=== PATIENT | female | born 1955 | race Two or more races ===

== ENCOUNTER 2017-02-02 10:32 | Emergency (ER) | payer OTHER | END 2017-02-02 10:35 | disposition left against medical advice (07) | LOC: CED 10:32 | DX: Z53.21 Procedure and treatment not carried out due to patient leaving prior to being seen by health care provider (principal) ==

== ENCOUNTER → 2018-01-06 | Outpatient (CLI) | payer OTHER | LOC: BRMIMAGING 09:16 | PROVIDERS: ATTEND Internal Medicine | DX: M19.041 Primary osteoarthritis, right hand (principal); M19.042 Primary osteoarthritis, left hand | CPT/HCPCS: 73130-PO ==

== ENCOUNTER 2018-08-12 09:36 | Emergency (ER) | payer OTHER ==
[2018-08-12] MEDS ORDERED: NS 1,000 ML IV ONE (10:17)
[2018-08-12] MEDS ORDERED: METOCLOPRAMIDE 10 MG/2 ML VIAL IVP ONE (10:17)
[2018-08-12] MEDS ORDERED: KETOROLAC 15 MG/1 ML SDV IVP ONE (10:18)
[2018-08-12] MEDS ORDERED: HYOSCYAMINE SULFATE 0.125 MG TAB PO ONE (10:51)
--- NOTE | 2018-08-12 11:08 | EDPHY ---
H & P Stated Complaint: Generalized abdominal pain x 1 day Time Seen by Provider: 08/12/18 10:03 HPI/ROS: This patient describes a new history of upper belly discomfort that started at 11:00 p.m. Last night while at rest. She describes this as intermittent cramping"like intestines twisted". She describes this as severe in intensity at times with no clear exacerbating factors. The pain does radiate up into her chest at times and is described as a tightness in her chest when it does occur- briefly. She does recall having this pain before. She has no other associated symptoms except for nausea and anorexia. She did not eat breakfast this morning as she usually does. Her brought her in by private vehicle for evaluation of the symptoms. ROS: Constitutional: She describes fatigue over the past 24 hr. No high fevers or chills. HEENT: No complaints Pulmonary: No complaints Cardiovascular: Mild lightheadedness. No heart palpitations. No leg swelling or calf pain GI: No significant abdominal distension. No vomiting. No diarrhea. She reports normal bowel movements. : No dysuria, frequency urgency. No hematuria. No flank pain 10 point review of symptoms is performed and otherwise negative with exception of pertinent positives and negatives listed in HPI and ROS Source: Patient Exam Limitations: No limitations - Personal History Current Tetanus Diphtheria and Acellular Pertussis (TDAP): Yes Tetanus Vaccine Date: within 10 years - Medical/Surgical History PMH: Past surgical history of hysterectomy 30 years ago or more Hx Asthma: No Hx Chronic Respiratory Disease: No Hx Diabetes: No Hx Cardiac Disease: No Hx Renal Disease: No Hx Cirrhosis: No Hx Alcoholism: No Hx HIV/AIDS: No Hx Splenectomy or Spleen Trauma: No Other PMH: DEPRESSION, HYSTERECTOMY, Prediabetic, hyperlipidemia - Family History Significant Family History: No pertinent family hx - Social History Smoking Status: Never smoked Alcohol Use: None Drug Use: None Additional Social History: No recent foreign travels or other risk factors for dysentery - Physical Exam Exam: Vital signs are normal exception of mild hypertension. General Appearance: Alert, no distress. Eyes: Pupils equal and round no pallor or injection. ENT, Mouth: Mucous membranes moist. Respiratory: There are no retractions, lungs are clear to auscultation. Cardiovascular: Regular rate and rhythm. Gastrointestinal: Normoactive, soft, mild epigastric tenderness with no guarding or rebound. No organomegaly. Patient also does have mild left lower quadrant tenderness with no guarding or rebound. Neurological: GCS 15 without focal deficits Skin: Warm and dry, no rashes. Musculoskeletal: Neck is supple nontender. Extremities are symmetrical, full range of motion. Psychiatric: Patient is mildly anxious. Mood and affect are otherwise normal DIFFERENTIAL DIAGNOSIS: After history and physical exam differential diagnosis was considered for food intolerance, gastritis, GERD, acute coronary syndrome or other myocardial ischemic disease, bowel ischemia, cholecystitis, hepatitis, diverticulitis Constitutional: Initial Vital Signs Temperature (C) 36.7 C 08/12/18 09:44 Heart Rate 55 L 08/12/18 09:44 Respiratory Rate 18 08/12/18 09:44 Blood Pressure 145/79 H 08/12/18 09:44 O2 Sat (%) 98 08/12/18 09:44 O2 Delivery Mode Room Air Allergies/Adverse Reactions: No Known Allergies Allergy (Verified 08/12/18 09:46) Home Medications: Medication Instructions Recorded Crestor 03/04/16 Fluoxetine HCl 08/12/18 Hyoscyamine Sulfate [Levsin, 0.125 - 0.25 mg SL Q6 PRN #20 tab 08/12/18 Hyomax-Sl 0.125 mg (*)] Metformin HCl 08/12/18 Medical Decision Making - Diagnostics EKG Interpretation: 12 lead EKG performed shortly after arrival at 10:25 a.m. Reveals sinus rhythm at 59 Intervals: Normal throughout [place]: Normal throughout ST segments: Normal throughout Overall assessment sinus rhythm-normal EKG with exception of low voltage in precordial leads. ED Course/Re-evaluation: IV normal saline bolus with Reglan and Benadryl with resolution of nausea and improvement in pain. She also received Toradol and Levsin with further reduction of pain down to minimal discomfort. Prior to discharge the patient symptoms have entirely resolved. I counseled regarding normal CBC, comp metabolic panel, and UA. Lipase is also normal. Discussion: Patient likely had food intolerance or food allergy causing some crampy abdominal pain. I counseled regarding this. She now has benign exam on recheck with no belly tenderness on repeat examination. - Data Points Laboratory Results: Laboratory Results 08/12/18 10:04 08/12/18 08/12/18 08/12/18 10:28 10:21 10:04 WBC RBC Hgb Hct MCV MCH MCHC RDW Plt Count MPV Neut % (Auto) Lymph % (Auto) [place] % (Auto) Eos % (Auto) Baso % (Auto) Nucleat RBC Rel Count Absolute Neuts (auto) Absolute Lymphs (auto) Absolute Monos (auto) Absolute Eos (auto) Absolute Basos (auto) Absolute Nucleated RBC Immature Gran % Immature Gran # POC Sodium 144 mEq/L mEq/L (135-145) POC Potassium 3.9 mEq/L mEq/L (3.3-5.0) POC Chloride 101.0 mEq/L mEq/L (97-110) POC Total CO2 26 mEq/L mEq/L (22-31) POC BUN 8 mg/dL mg/dL (7-23) POC Creatinine 0.6 mg/dL mg/dL (0.6-1.0) POC Glucose 124 mg/dL H mg/dL (70-100) POC Calcium 9.4 mg/dL mg/dL (8.5-10.4) POC Total Bilirubin 1.1 mg/dL mg/dL (0.1-1.4) POC AST 36 IU/L IU/L (14-46) POC ALT 45 IU/L IU/L (9-52) POC Alk Phosphatase 91 IU/L IU/L (38-126) POC Troponin I 0.00 ng/mL ng/mL (0.00-0.08) POC Total Protein 7.5 g/dL g/dL (6.3-8.2) POC Albumin 4.2 g/dL g/dL (3.5-5.0) Lipase 73 IU/L IU/L (23-300) 08/12/18 10:04 WBC 8.17 10^3/uL 10^3/uL (3.80-9.50) RBC 5.02 10^6/uL 10^6/uL (4.18-5.33) Hgb 14.7 g/dL g/dL (12.6-16.3) Hct 43.5 % % (38.0-47.0) MCV 86.7 fL fL (81.5-99.8) MCH 29.3 pg pg (27.9-34.1) MCHC 33.8 g/dL g/dL (32.4-36.7) RDW 13.5 % % (11.5-15.2) Plt Count 259 10^3/uL 10^3/uL (150-400) MPV 10.6 fL fL (8.7-11.7) Neut % (Auto) 70.0 % % (39.3-74.2) Lymph % (Auto) 16.5 % % (15.0-45.0) [place] % (Auto) 11.6 % % (4.5-13.0) Eos % (Auto) 1.2 % % (0.6-7.6) Baso % (Auto) 0.5 % % (0.3-1.7) Nucleat RBC Rel Count 0.0 % % (0.0-0.2) Absolute Neuts (auto) 5.71 10^3/uL 10^3/uL (1.70-6.50) Absolute Lymphs (auto) 1.35 10^3/uL 10^3/uL (1.00-3.00) Absolute Monos (auto) 0.95 10^3/uL H 10^3/uL (0.30-0.80) Absolute Eos (auto) 0.10 10^3/uL 10^3/uL (0.03-0.40) Absolute Basos (auto) 0.04 10^3/uL 10^3/uL (0.02-0.10) Absolute Nucleated RBC 0.00 10^3/uL 10^3/uL (0-0.01) Immature Gran % 0.2 % % (0.0-1.1) Immature Gran # 0.02 10^3/uL 10^3/uL (0.00-0.10) POC Sodium POC Potassium POC Chloride POC Total CO2 POC BUN POC Creatinine POC Glucose POC Calcium POC Total Bilirubin POC AST POC ALT POC Alk Phosphatase POC Troponin I POC Total Protein POC Albumin Lipase Patient's POC urine dip is also normal Medications Given: Discontinued Medications Diphenhydramine HCl (Benadryl Injection) 25 mg IVP EDNOW ONE Stop: 08/12/18 10:19 Last Admin: 08/12/18 10:36 Dose: 25 mg Hyoscyamine Sulfate (Levsin, Hyomax-Sl) 0.125 mg PO EDNOW ONE Stop: 08/12/18 10:52 Last Admin: 08/12/18 10:55 Dose: 0.125 mg Sodium Chloride (Ns) 1,000 mls @ 0 mls/hr IV EDNOW ONE; Wide Open PRN Reason: Protocol Stop: 08/12/18 10:18 Last Admin: 08/12/18 10:33 Dose: 1,000 mls Ketorolac Tromethamine (Toradol) 15 mg IVP EDNOW ONE Stop: 08/12/18 10:19 Last Admin: 08/12/18 10:34 Dose: 15 mg Metoclopramide HCl (Reglan Injection) 5 mg IVP EDNOW ONE Stop: 08/12/18 10:18 Last Admin: 08/12/18 10:38 Dose: 5 mg Point of Care Test Results: Chemistry 08/12/18 08/12/18 10:28 10:21 POC Sodium 144 mEq/L mEq/L (135-145) POC Potassium 3.9 mEq/L mEq/L (3.3-5.0) POC Chloride 101.0 mEq/L mEq/L (97-110) POC Total CO2 26 mEq/L mEq/L (22-31) POC BUN 8 mg/dL mg/dL (7-23) POC Creatinine 0.6 mg/dL mg/dL (0.6-1.0) POC Glucose 124 mg/dL H mg/dL (70-100) POC Calcium 9.4 mg/dL mg/dL (8.5-10.4) POC Total Bilirubin 1.1 mg/dL mg/dL (0.1-1.4) POC AST 36 IU/L IU/L (14-46) POC ALT 45 IU/L IU/L (9-52) POC Alk Phosphatase 91 IU/L IU/L (38-126) POC Troponin I 0.00 ng/mL ng/mL (0.00-0.08) POC Total Protein 7.5 g/dL g/dL (6.3-8.2) POC Albumin 4.2 g/dL g/dL (3.5-5.0) Urine Dip Collection Date 08/12/18 Collection Time 09:50 Specific [place] (1.002-1.030) 1.020 PH (5.0-7.5) 7.5 Leukocytes (Negative) Negative Nitrites (Negative) Negative Protein (Negative) Negative Glucose (Negative) Negative Ketones (Negative) Negative Urobilnogen (0.2-1.0 EU) 0.2 Bilirubin (Negative) Negative Blood (Negative) 2+ Departure - Departure Disposition: Home, Routine, Self-Care Clinical Impression: Generalized abdominal cramping Condition: Good Instructions: Acute Abdominal Pain (ED) Additional Instructions: Diagnosis: Generalized crampy abdominal pain Your labs today are normal. Plan: Drink plenty fluids Light diet to feel improved Levsin as needed for cramping Follow up with your primary care physician for any ongoing symptoms Return for any significant worsening despite the treatment plan. Referrals: Johnnie Aranda MD [Primary Care Provider] - As per Instructions Prescriptions: Hyoscyamine Sulfate [Levsin, Hyomax-Sl 0.125 mg (*)] 0.125 - 0.25 mg SL Q6 PRN # 20 tab PRN Reason: abdominal cramping
[2018-08-12 11:58] LABS: PLATELET COUNT 259 10^3/uL (150-400)
[2018-08-12 12:29] VITALS: BP 128/78
--- NOTE | 2018-08-14 18:16 | CPEKG ---
Test Reason : OPEN Blood Pressure : / mmHG Vent. Rate : 059 BPM Atrial Rate : 059 BPM P-R Int : 163 ms QRS Dur : 086 ms QT Int : 378 ms P-R-T Axes : -13 -04 040 degrees QTc Int : 375 ms Sinus rhythm Low voltage, precordial leads Confirmed by Wally King ([id number]) on 08/14/2018 6:16:05 PM Referred By: Confirmed By:Wally King
== END 2018-08-12 12:27 | disposition home or self-care (01) ==
LOC: CED 09:36
DX: R10.84 Generalized abdominal pain (principal); R25.2 Cramp and spasm; E86.9 Volume depletion, unspecified
CPT/HCPCS: 80053-PO; 84484-PO; 96374; J1200; J1885; J2765